=== PATIENT | female | born 1940 | race Caucasian/White ===

== ENCOUNTER → 2020-02-03 12:53 | Outpatient (BNVA) | payer MEDICARE, BC, SELFPAY | PROVIDERS: Family Provider Nurse Practitioner Family; PCP Nurse Practitioner Family; Visit Provider Specialist | DX: G24.3 Spasmodic torticollis (principal); G24.8 Other dystonia; G20 Parkinson's disease; Z96.89 Presence of other specified functional implants | CPT/HCPCS: 64642; 95983; 99213; J0585 ==

== ENCOUNTER → 2020-04-27 10:49 | Outpatient (BNVA) | payer MEDICARE, BC, SELFPAY | PROVIDERS: Family Provider Nurse Practitioner Family; PCP Nurse Practitioner Family; Visit Provider Specialist | DX: G24.8 Other dystonia (principal); G20 Parkinson's disease; Z96.89 Presence of other specified functional implants | CPT/HCPCS: 64642; 95983; 95984; 99214; J0585 ==

== ENCOUNTER → 2020-07-20 13:20 | Outpatient (BNVA) | payer MEDICARE, BC, SELFPAY | PROVIDERS: Family Provider Nurse Practitioner Family; PCP Nurse Practitioner Family; Visit Provider Specialist | DX: G24.8 Other dystonia (principal); G20 Parkinson's disease; F32.9 Major depressive disorder, single episode, unspecified; Z96.89 Presence of other specified functional implants | CPT/HCPCS: 64644; 95983; 95984; 99214; J0585 ==

== ENCOUNTER → 2021-02-22 12:12 | Outpatient (BNVA) | payer MEDICARE, BC, SELFPAY | PROVIDERS: Family Provider Nurse Practitioner Family; PCP Nurse Practitioner Family; Visit Provider Specialist | DX: G20 Parkinson's disease; F32.9 Major depressive disorder, single episode, unspecified; Z96.82 Presence of neurostimulator; G24.8 Other dystonia | CPT/HCPCS: 64644; 95983; 99215; J0585 ==